=== PATIENT | male | born 1940 | race Hispanic/Latino ===

== ENCOUNTER → 2018-06-20 | Outpatient (CLI) | payer MEDICARE ==
[2018-06-20 10:33] LABS: CREATININE 1.1 mg/dL (0.5-1.5)
== END | disposition home or self-care (01) ==
LOC: LAB 09:50
PROVIDERS: ATTEND Thoracic Surgery (Cardiothoracic Vascular Surgery)
DX: Z01.812 Encounter for preprocedural laboratory examination (principal); I71.4 Abdominal aortic aneurysm, without rupture
CPT/HCPCS: 36415; 82565; 84520

== ENCOUNTER → 2018-06-26 | Outpatient (CLI) | payer MEDICARE ==
[~2018-06-26] MED LIST: IOHEXOL 350 MG/ML 100ML INFUS..BTL IV ONE
== END | disposition home or self-care (01) ==
LOC: RAH 07:16
PROVIDERS: ATTEND Thoracic Surgery (Cardiothoracic Vascular Surgery)
DX: I71.4 Abdominal aortic aneurysm, without rupture (principal); K57.90 Diverticulosis of intestine, part unspecified, without perforation or abscess without bleeding; K80.20 Calculus of gallbladder without cholecystitis without obstruction; N28.1 Cyst of kidney, acquired
CPT/HCPCS: 71275; 74174; Q9967

== ENCOUNTER 2018-07-09 07:55 | Inpatient (IN) | payer MEDICARE ==
[2018-07-08 13:56] VITALS: BP 175/67
[2018-07-08 14:07] LABS: BASOPHILS % (AUTO) 0.7 % (0.0-5.0); HEMATOCRIT 30.8 % (42-54); LYMPHOCYTES % (AUTO) 27.3 % (21.0-51.0); MEAN CORPUSCULAR HEMOGLOBIN 28.1 pg (27.0-33.0); MEAN CORPUSCULAR HGB CONC 33.9 g/dL (32.0-36.0); MEAN CORPUSCULAR VOLUME 82.8 fL (79-99); MONOCYTES % (AUTO) 13.3 % (3.0-13.0); NEUTROPHILS % (AUTO) 55.7 % (40.0-77.0); NUCLEATED RED BLOOD CELLS 0.1 % (0.0-0.19); PLATELET COUNT (AUTO) 129 K/uL (130-400); RED BLOOD CELL COUNT(AUTO) 3.72 MIL/uL (4.50-6.20); RED CELL DISTRIBUTION WIDTH 14.7 % (11.0-15.5); WHITE BLOOD COUNT (AUTO) 4.1 K/uL (4.8-10.8)
[2018-07-08 14:14] LABS: HEMOGLOBIN A1C 5.8 % (4.0-6.0)
[2018-07-08 14:18] LABS: INR 1.02 (0.85-1.15); PROTHROMBIN TIME 10.7 SEC (9.6-11.6)
[2018-07-08 14:19] LABS: BILIRUBIN,TOTAL 0.7 mg/dL (0.2-1.0); CREATININE 1.1 mg/dL (0.5-1.5); POTASSIUM 5.5 mmol/L (3.5-5.1); TOTAL PROTEIN, SERUM 7.2 g/dL (6.0-8.3)
--- NOTE | 2018-07-08 16:52 | NUR ---
ABNORMAL LABS ABNORMAL LABS REPORTED TO FREDERIC FALCON DR. NURSE. NA 128,POTASSIUM 5.5, H/H 10.5/30.8, PLT 129.NO FURTHER ORDERS GIVEN, MAY PROCEED WITH PLANNED PROCEDURE.
[~2018-07-09] VITALS: Ht 182.9 cm; Wt 68.5 kg
[2018-07-09] VITALS (25 sets, daily range): BP systolic 45–171; BP diastolic 29–102
[~2018-07-09 07:55] MED LIST changes: +ASPI-1026 PO; +CITA-107 PO; +FAMO40TA7 PO; -IOHEXOL 350 MG/ML 100ML INFUS..BTL IV ONE; +LISI-617 PO; +METF-446 PO; +METO25TA6 PO; +MULT-1258 PO; +PIOG30TA70 PO; +SIMV20TA6 PO; +TAMS-1 PO
[2018-07-09] MEDS ORDERED: SODIUM CHLORIDE 0.9% 1000ML 1,000 ML IV ONE (08:59)
[2018-07-09] MEDS: CEFUROXIME SODIUM 1.5 GM VIAL IVP ONE ×2 (09:17→13:30)
[2018-07-09] MEDS ORDERED: BACITRACIN 50,000 UNIT VIAL ONE ×2 (11:43→11:44)
[2018-07-09] MEDS ORDERED: PROPOFOL 10 MG/ML 20ML VIAL IV ONE (12:34)
[2018-07-09] MEDS ORDERED: GLYCOPYRROLATE 1 MG/5 ML SYRINGE ONE (12:34)
[2018-07-09] MEDS ORDERED: NOREPINEPHRINE BITARTRATE 1 MG/1 ML ML IV ONE (12:34)
[2018-07-09] MEDS ORDERED: MIDAZOLAM HCL 1 MG/ML 2ML VIAL ONE ×2 (12:35→12:38)
[2018-07-09] MEDS ORDERED: NEOSTIGMINE 5MG/5ML SYR IV ONE (12:35)
[2018-07-09] MEDS ORDERED: ROCURONIUM 10MG/1ML SYR 10 MG/ML ML ONE ×2 (12:35→13:38)
[2018-07-09] MEDS ORDERED: FENTANYL CITRATE PF 50 MCG/1 ML 5ML AMP IV ONE ×3 (12:35→16:39)
[2018-07-09] MEDS ORDERED: NITROGLYCERIN 50 MG/D5% WATER 1 BOT ONE ×2 (12:39→13:14)
[2018-07-09] MEDS ORDERED: HEPARIN SODIUM 1000UNIT/ML 10ML VIAL ONE (13:23)
[2018-07-09] MEDS ORDERED: MANNITOL 20% 500ML BAG 500 ML IV ONE (13:44)
[2018-07-09] MEDS ORDERED: ONDANSETRON HCL 4 MG/2 ML VIAL ONE (13:55)
[2018-07-09] MEDS ORDERED: MORPHINE SULFATE 2 MG/ML 1ML SYG IVP PRN ×2 (14:30)
[2018-07-09] MEDS ORDERED: ALBUMIN (HUMAN) 25% 50 ML IV ONE (14:32)
[2018-07-09] MEDS ORDERED: GLUCAGON 1MG KIT 1 MG ML IM PRN (14:45)
[2018-07-09] MEDS ORDERED: DEXTROSE 50%-WATER 50 ML DISP.SYRIN IV PRN (14:45)
[2018-07-09] MEDS ORDERED: LIDOCAINE HCL-MPF 1% 2ML VIAL IVP PRN ×2 (14:45)
[2018-07-09] MEDS ORDERED: POTASSIUM CHLORIDE 10MEQ/100ML 100 ML IV PRN ×2 (14:45)
[2018-07-09] MEDS ORDERED: POTASSIUM CHLORIDE 10% ELIXIR 20 MEQ/15 ML UDCUP PO PRN (14:45)
[2018-07-09] MEDS ORDERED: EPINEPHRINE 1 MG/ML 30ML VIAL IJ ONE (15:15)
[2018-07-09 15:16] LABS: ABG BASE EXCESS -3.6 mmol/L (-2.0-3.0); ABG HCO3 21.9 mmol/L (21.0-28.0); ABG OXYGEN SATURATION 76.4 % (95.0-99.0); ABG PCO2 41 mmHg (35-48)
[2018-07-09 15:40] LABS: ABG BASE EXCESS 9.9 mmol/L (-2.0-3.0); ABG HCO3 35.7 mmol/L (21.0-28.0); ABG PCO2 56 mmHg (35-48)
[2018-07-09 16:13] LABS: ABG BASE EXCESS 1.8 mmol/L (-2.0-3.0); ABG HCO3 26.8 mmol/L (21.0-28.0); ABG OXYGEN SATURATION 80.2 % (95.0-99.0); ABG PCO2 44 mmHg (35-48)
[2018-07-09] MEDS ORDERED: EPHEDRINE SULFATE 50 MG/ML AMPULE ONE (16:43)
[2018-07-09 17:16] LABS: ABG BASE EXCESS -2.8 mmol/L (-2.0-3.0); ABG HCO3 21.5 mmol/L (21.0-28.0); ABG OXYGEN SATURATION 98.8 % (95.0-99.0); ABG PCO2 35 mmHg (35-48)
[2018-07-09 17:28] LABS: HEMATOCRIT 24.8 % (42-54); MEAN CORPUSCULAR HEMOGLOBIN 27.3 pg (27.0-33.0); MEAN CORPUSCULAR HGB CONC 32.8 g/dL (32.0-36.0); MEAN CORPUSCULAR VOLUME 83.3 fL (79-99); PLATELET COUNT (AUTO) 92 K/uL (130-400); RED BLOOD CELL COUNT(AUTO) 2.98 MIL/uL (4.50-6.20); RED CELL DISTRIBUTION WIDTH 14.7 % (11.0-15.5); WHITE BLOOD COUNT (AUTO) 8.1 K/uL (4.8-10.8)
[2018-07-09 17:46] LABS: CREATININE 0.9 mg/dL (0.5-1.5); POTASSIUM 4.3 mmol/L (3.5-5.1)
[2018-07-09 18:27] LABS: INR 1.44 (0.85-1.15); PARTIAL THROMBOPLASTIN TIME 37.1 SEC (26.3-35.5)
[2018-07-09] MEDS: D5W-1/2 NS/20MEQ KCL 1,000 ML IV SCH (18:42)
[2018-07-09] MEDS: INSULIN HUMULIN R 100 UNIT/ML 3ML SQ SCH ×2 (18:45→20:46)
[2018-07-09] MEDS: KETOROLAC TROMETHAMINE 15MG/ML IV SCH (18:48)
--- NOTE | 2018-07-09 19:00 | NUR ---
ASSESSMENT PT RESTING IN BED. PERRLA, FOLLOWS ALL COMMANDS, COOPERATIVE. ETT 7.5. HR: NSR. VENT SETTINGS: SIMV-12-40%-650, PRESSURE SUPPORT 10 PEEP 5. IV FLUIDS INFUSING WITHOUT DIFFICULTY. 16 FR LEFT NARE NGT AT L.I.W.S. SURGICAL INCISION AND DRY INTACT . 16 FR MCCARTY CATHETER TO BSD. CALLBELL WITHIN REACH. ASSESSMENT COMPLETED, SEE FLOW SHEET.
[2018-07-09 19:18] LABS: ABG BASE EXCESS -3.3 mmol/L (-2.0-3.0); ABG HCO3 18.2 mmol/L (21.0-28.0); ABG OXYGEN SATURATION 98.7 % (95.0-99.0); ABG PCO2 23 mmHg (35-48)
[2018-07-09] MEDS ORDERED: SODIUM BICARB 50MEQ 50ML VIAL ONE (19:34)
--- NOTE | 2018-07-09 19:55 | NUR ---
WEANING PARAMETERS: NIF -25 VC 2L PT EXTUBATED AT 195 PLACED ON 40% AEROSOL MASK
[2018-07-09] MEDS ORDERED: SODIUM BICARB 50MEQ 50ML VIAL IV ONE (20:30)
[2018-07-09] MEDS: FAMOTIDINE/PF 20 MG/2 ML VIAL IV SCH (20:40)
[2018-07-09] MEDS ORDERED: NOREPINEPHRINE 4MG/NS 250ML 250 ML IV ONE (20:45)
--- NOTE | 2018-07-09 23:00 | NUR ---
ASSESSMENT PT RESTING IN BED. 40% AEROSOL MASK IN PLACE. HR: NSR, PERRLA. IV FLUIDS INFUSING WITHOUT DIFFICULTY. SURGICAL INCISION TO ABD INTACT. 16 FR MCCARTY CATHETER TO BSD. CALLBELL WITHIN REACH. ASSESSMENT COMPLETED, SEE FLOW SHEET.
[2018-07-10] VITALS (28 sets, daily range): BP systolic 78–267; BP diastolic 46–262
[2018-07-10] MEDS: CEFAZOLIN SODIUM 1 GM VIAL IVP SCH ×2 (00:38→14:26)
[2018-07-10] MEDS: KETOROLAC TROMETHAMINE 15MG/ML IV SCH ×2 (00:41→06:00)
[2018-07-10 05:40] LABS: HEMATOCRIT 28.3 % (42-54); MEAN CORPUSCULAR HEMOGLOBIN 28.7 pg (27.0-33.0); MEAN CORPUSCULAR HGB CONC 34.7 g/dL (32.0-36.0); MEAN CORPUSCULAR VOLUME 82.8 fL (79-99); PLATELET COUNT (AUTO) 96 K/uL (130-400); RED BLOOD CELL COUNT(AUTO) 3.42 MIL/uL (4.50-6.20); RED CELL DISTRIBUTION WIDTH 14.9 % (11.0-15.5); WHITE BLOOD COUNT (AUTO) 9.4 K/uL (4.8-10.8)
[2018-07-10 05:42] LABS: POTASSIUM 4.8 mmol/L (3.5-5.1)
[2018-07-10] MEDS: INSULIN HUMULIN R 100 UNIT/ML 3ML SQ SCH ×3 (06:48→17:01)
[2018-07-10 07:14] LABS: ABG BASE EXCESS -1.4 mmol/L (-2.0-3.0); ABG HCO3 22.5 mmol/L (21.0-28.0); ABG OXYGEN SATURATION 99.2 % (95.0-99.0); ABG PCO2 35 mmHg (35-48)
[2018-07-10] MEDS: FAMOTIDINE/PF 20 MG/2 ML VIAL IV SCH ×2 (08:35→21:02)
[2018-07-10] MEDS: D5W-1/2 NS/20MEQ KCL 1,000 ML IV SCH ×2 (11:11→21:01)
--- NOTE | 2018-07-10 13:28 | NUR ---
DC PLAN VISITED WITH PATIENT. PATIENT LIVES WITH SPOUSE. INDEPENDENT ABLE TO PERFORM ADL'S. PATIENT HAS NO SERVICES OR DME'S. FEELS SAFE TO RETURN HOME. Addendum: 07/10/18 at 1330 by FRANTZ HAMMOND RN CM Amended: Links added.
[2018-07-10 14:50] LABS: CREATININE 2.4 mg/dL (0.5-1.5)
[2018-07-10] MEDS ORDERED: PHARMACY COMMUNICATION MISC SCH (15:45)
[2018-07-10] MEDS ORDERED: FUROSEMIDE 10 MG/ML 4ML VIAL IV SCH (16:00)
[2018-07-10] MEDS: FUROSEMIDE 100 MG in SODIUM CHLORIDE 0.9% 90 ML IV PRN ×2 (16:14→21:23)
[2018-07-10] MEDS: HYDRALAZINE HCL 20 MG/ML VIAL IV PRN (17:44)
--- NOTE | 2018-07-10 20:30 | NUR ---
ASSESSMENT PT RESTING IN BED. O2 2L NC IN PLACE. HR: NSR, PERRLA. IV FLUIDS INFUSING WITHOUT DIFFICULTY. SURGICAL INCISION TO ABD C/D/I. 16 FR MCCARTY CATHETER TO BSD. CALLBELL WITHIN REACH. ASSESSMENT COMPLETED, SEE FLOW SHEET.
--- NOTE | 2018-07-10 21:40 | NUR ---
BLOOD SUGARS Q6H PT NPO, BLOOD SUGARS Q6H, UNTIL DIET STARTED
[2018-07-10] MEDS ORDERED: MEPERIDINE HCL/PF 25 MG/0.5 ML AMPUL IM PRN (22:15)
[2018-07-10] MEDS ORDERED: MEPERIDINE-PF 25 MG/ML SYG ONE (23:00)
[2018-07-10] MEDS ORDERED: FUROSEMIDE 100 MG in SODIUM CHLORIDE 0.9% 90 ML IV PRN (23:52)
[2018-07-11] VITALS (29 sets, daily range): BP systolic 94–199; BP diastolic 38–92
[2018-07-11] MEDS: CEFAZOLIN SODIUM 1 GM VIAL IVP SCH (00:30)
[2018-07-11] MEDS: INSULIN HUMULIN R 100 UNIT/ML 3ML SQ SCH ×5 (05:53→21:00)
[2018-07-11 05:54] LABS: MEAN CORPUSCULAR HEMOGLOBIN 27.9 pg (27.0-33.0); MEAN CORPUSCULAR HGB CONC 33.9 g/dL (32.0-36.0); MEAN CORPUSCULAR VOLUME 82.4 fL (79-99); PLATELET COUNT (AUTO) 96 K/uL (130-400); RED BLOOD CELL COUNT(AUTO) 2.67 MIL/uL (4.50-6.20); RED CELL DISTRIBUTION WIDTH 14.9 % (11.0-15.5); WHITE BLOOD COUNT (AUTO) 9.2 K/uL (4.8-10.8)
--- NOTE | 2018-07-11 06:06 | NUR ---
DR ALEJANDRO ALLEN CALLED, UP DATE GIVEN. MADE AWARE OF URINE OUT PUT AND HGB OF 7.5. SEE ORDERS
[2018-07-11 06:15] LABS: CREATININE 2.3 mg/dL (0.5-1.5); POTASSIUM 4.4 mmol/L (3.5-5.1)
[2018-07-11] MEDS ORDERED: ALBUMIN (HUMAN) 5% 250 ML IV SCH (06:15)
[2018-07-11] MEDS ORDERED: ALBUMIN (HUMAN) 5% 250 ML IV ONE (06:16)
--- NOTE | 2018-07-11 06:42 | NUR ---
DR ALEJANDRO ALLEN MADE AWARE OF BUN/CREAT AND AGAIN URINE OUTPUT. NO NEW ORDERS RECEIVED AT THIS TIME.
[2018-07-11] MEDS ORDERED: SODIUM CHLORIDE 0.9% 250 ML IV ONE (07:33)
[2018-07-11] MEDS: D5W-1/2 NS/20MEQ KCL 1,000 ML IV SCH (08:12)
[2018-07-11] MEDS: FAMOTIDINE/PF 20 MG/2 ML VIAL IV SCH (09:06)
[2018-07-11] MEDS: ENOXAPARIN SODIUM 30 MG/0.3 ML SQ SCH (09:07)
[2018-07-11] MEDS: HYDRALAZINE HCL 20 MG/ML VIAL IV PRN (09:07)
--- NOTE | 2018-07-11 09:58 | NUR ---
DR. MALAGON VISITED AND ASSESSED PATIENT. INFORMED ON PATIENT LABS AND STATUS. ORDERS GIVEN SEE CHART.
[2018-07-11] MEDS ORDERED: CALCIUM GLUCONATE 1 GM in SODIUM CHLORIDE 0.9% 50 ML IV PRN (10:15)
[2018-07-11] MEDS: METOPROLOL TARTRATE 25 MG TAB PO SCH ×2 (14:23→21:27)
--- NOTE | 2018-07-11 20:30 | NUR ---
ASSESSMENT PT RESTING IN BED. O2 2L NC IN PLACE. HR: NSR, PERRLA. LASIX GTT INFUSING WITHOUT DIFFICULTY. SURGICAL INCISION TO ABD C/D/I. 16 FR MCCARTY CATHETER TO BSD. SHRUTHI REVIEWED AND WITHIN REACH. ASSESSMENT COMPLETED, SEE FLOW SHEET.
[2018-07-11] MEDS ORDERED: MEPERIDINE-PF 25 MG/ML SYG IM PRN (21:10)
[2018-07-11] MEDS: TAMSULOSIN HCL 0.4 MG CAP.ER.24H PO SCH (21:27)
[2018-07-12] VITALS (24 sets, daily range): BP systolic 98–153; BP diastolic 52–92
--- NOTE | 2018-07-12 | NUR ---
ASSESSMENT PT RESTING IN BED. O2 2L NC IN PLACE. HR: NSR, PERRLA. LASIX GTT INFUSING WITHOUT DIFFICULTY. SURGICAL INCISION TO ABD C/D/I. 16 FR MCCARTY CATHETER TO BSD. CALLBELL WITHIN REACH. ASSESSMENT COMPLETED, SEE FLOW SHEET.
[2018-07-12 05:01] LABS: HEMATOCRIT 26.7 % (42-54); MEAN CORPUSCULAR HEMOGLOBIN 28.9 pg (27.0-33.0); MEAN CORPUSCULAR HGB CONC 34.5 g/dL (32.0-36.0); MEAN CORPUSCULAR VOLUME 83.8 fL (79-99); PLATELET COUNT (AUTO) 78 K/uL (130-400); RED BLOOD CELL COUNT(AUTO) 3.19 MIL/uL (4.50-6.20); RED CELL DISTRIBUTION WIDTH 15.2 % (11.0-15.5); WHITE BLOOD COUNT (AUTO) 7.6 K/uL (4.8-10.8)
[2018-07-12 05:16] LABS: CREATININE 2.1 mg/dL (0.5-1.5); POTASSIUM 3.7 mmol/L (3.5-5.1)
[2018-07-12] MEDS: INSULIN HUMULIN R 100 UNIT/ML 3ML SQ SCH ×4 (05:36→20:57)
--- NOTE | 2018-07-12 07:38 | NUR ---
REPORT REPORT GIVEN TO KIMMIE DE LA GARZA
[2018-07-12] MEDS ORDERED: TRAMADOL HCL 50 MG TABLET ONE (08:17)
[2018-07-12] MEDS: PANTOPRAZOLE SODIUM 40 MG TABLET.DR PO SCH (08:21)
[2018-07-12] MEDS: METOPROLOL TARTRATE 25 MG TAB PO SCH ×3 (08:22→21:09)
[2018-07-12] MEDS: ENOXAPARIN SODIUM 30 MG/0.3 ML SQ SCH (08:22)
[2018-07-12] MEDS ORDERED: ASPIRIN 81MG TAB.CHEW PO SCH (09:00)
[2018-07-12] MEDS ORDERED: TRAMADOL HCL 50 MG TABLET PO PRN (09:00)
[2018-07-12] MEDS: FUROSEMIDE 10 MG/ML 2ML VIAL IV SCH ×2 (17:48→23:03)
--- NOTE | 2018-07-12 20:00 | NUR ---
ASSESSMENT AWAKE. RESTING IN BED. DENIES PAIN. REMINDED TO USE IS Q1H FOR 10 BREATHS WHILE AWAKE TO PREVENT LUNG COMPLICATIONS. ASSESSMENT COMPLETED SEE FLOW SHEET. ENCOURAGED TO CALL FOR WANTS OR NEEDS. Addendum: 07/12/18 at 2024 by DOMINIQUE PETERSON RN RN Amended: Links added.
[2018-07-12] MEDS: TAMSULOSIN HCL 0.4 MG CAP.ER.24H PO SCH (21:09)
[2018-07-12] MEDS: POTASSIUM CHLORIDE 20 MEQ ERTAB PO SCH (21:10)
[2018-07-12] MEDS: POTASSIUM CHLORIDE 20 MEQ ERTAB PO PRN (23:04)
[2018-07-13] VITALS (17 sets, daily range): BP systolic 88–158; BP diastolic 38–83
[2018-07-13 03:58] LABS: HEMATOCRIT 28.4 % (42-54); MEAN CORPUSCULAR HEMOGLOBIN 28.3 pg (27.0-33.0); MEAN CORPUSCULAR HGB CONC 33.7 g/dL (32.0-36.0); MEAN CORPUSCULAR VOLUME 83.9 fL (79-99); PLATELET COUNT (AUTO) 107 K/uL (130-400); RED BLOOD CELL COUNT(AUTO) 3.39 MIL/uL (4.50-6.20); RED CELL DISTRIBUTION WIDTH 15.2 % (11.0-15.5); WHITE BLOOD COUNT (AUTO) 6.7 K/uL (4.8-10.8)
[2018-07-13 04:00] LABS: CREATININE 1.7 mg/dL (0.5-1.5); POTASSIUM 3.8 mmol/L (3.5-5.1)
[2018-07-13] MEDS: FUROSEMIDE 10 MG/ML 2ML VIAL IV SCH ×3 (04:48→21:44)
[2018-07-13] MEDS: INSULIN HUMULIN R 100 UNIT/ML 3ML SQ SCH ×4 (06:26→20:22)
--- NOTE | 2018-07-13 07:20 | NUR ---
AM ASSESSMENT COMPLETED NOTED. PT AAO X3. NO NEURO DEFICIT NOTED. ON ROOM AIR, NO RESP DISTRESS NOTED. DRESSING TO ABDOMEN DRY AND INTACT. BOWEL SOUNDS PRESENT, PT SATES IS PASSING GAS, ABDOMEN SOFT, DENIES ANY NAUSEA. RIGHT IJ CVC INTACT. FC TO GRAVITY. SCDS IN PLACE. VS NOTED ON COMPUTER. DENIES ANY PAIN AT THIS TIME. CALL LIGHT WITHIN REACH. CONTINUE TO MONITOR PT.
[2018-07-13] MEDS: METOPROLOL TARTRATE 25 MG TAB PO SCH ×4 (08:33→20:19)
[2018-07-13] MEDS: PANTOPRAZOLE SODIUM 40 MG TABLET.DR PO SCH (08:33)
[2018-07-13] MEDS: POTASSIUM CHLORIDE 20 MEQ ERTAB PO SCH ×2 (08:34→20:18)
--- NOTE | 2018-07-13 11:51 | NUR ---
PT AMBULATED IN HALLWAY. TOLERATED WELL.
[2018-07-13] MEDS: ENOXAPARIN SODIUM 30 MG/0.3 ML SQ SCH (15:07)
[2018-07-13] MEDS: ASPIRIN 81MG TAB.CHEW PO SCH (15:07)
--- NOTE | 2018-07-13 16:41 | NUR ---
DCP UPDATE: Met with pt/spouse and sister this afternoon to discuss Md recommendations for [place]hab vs [place]. Per pt he is not willing to consider SNF/Rehab and wants to go home. Discussed HH as an option. Pt is agreeable to HH services. He mentions that he has received rehab services from [id number]. [facility] called from pt's room to verify if they would be able to provide services needed. No answer. Pt consented to [facility]. Referral faxed to [facility] pending acceptance.
[2018-07-13] MEDS: TAMSULOSIN HCL 0.4 MG CAP.ER.24H PO SCH (20:18)
[2018-07-14 03:58] VITALS: BP 145/73
[2018-07-14] MEDS: FUROSEMIDE 10 MG/ML 2ML VIAL IV SCH (05:21)
[2018-07-14] MEDS: POTASSIUM CHLORIDE 20 MEQ ERTAB PO PRN (05:21)
[2018-07-14] MEDS: INSULIN HUMULIN R 100 UNIT/ML 3ML SQ SCH ×4 (05:23→20:42)
[2018-07-14 07:21] VITALS: BP 137/71
[2018-07-14] MEDS: ASPIRIN 81MG TAB.CHEW PO SCH (09:45)
[2018-07-14] MEDS: METOPROLOL TARTRATE 25 MG TAB PO SCH ×3 (09:45→20:31)
[2018-07-14] MEDS: PANTOPRAZOLE SODIUM 40 MG TABLET.DR PO SCH (09:45)
[2018-07-14] MEDS: ENOXAPARIN SODIUM 30 MG/0.3 ML SQ SCH (09:46)
[2018-07-14] MEDS: POTASSIUM CHLORIDE 20 MEQ ERTAB PO SCH ×2 (09:46→20:40)
[2018-07-14 11:05] VITALS: BP 112/59
[2018-07-14 16:24] VITALS: BP 106/57
--- NOTE | 2018-07-14 16:30 | NUR ---
AMBULATING IN HALLWAY WITHOUT ASSISTANCE. STEADY GAIT NOTED.
[2018-07-14 19:24] VITALS: BP 118/73
[2018-07-14] MEDS: FUROSEMIDE 20 MG TABLET PO SCH (20:40)
[2018-07-14] MEDS: TAMSULOSIN HCL 0.4 MG CAP.ER.24H PO SCH (20:41)
[2018-07-15] VITALS: BP 136/69
[2018-07-15 04:00] VITALS: BP 123/67
[2018-07-15 04:19] LABS: HEMATOCRIT 28.1 % (42-54); MEAN CORPUSCULAR HEMOGLOBIN 28.1 pg (27.0-33.0); MEAN CORPUSCULAR HGB CONC 33.4 g/dL (32.0-36.0); MEAN CORPUSCULAR VOLUME 84.2 fL (79-99); PLATELET COUNT (AUTO) 158 K/uL (130-400); RED BLOOD CELL COUNT(AUTO) 3.33 MIL/uL (4.50-6.20); RED CELL DISTRIBUTION WIDTH 15.5 % (11.0-15.5); WHITE BLOOD COUNT (AUTO) 6.7 K/uL (4.8-10.8)
[2018-07-15 04:30] LABS: CREATININE 1.5 mg/dL (0.5-1.5); POTASSIUM 3.9 mmol/L (3.5-5.1)
[2018-07-15] MEDS: INSULIN HUMULIN R 100 UNIT/ML 3ML SQ SCH ×3 (05:32→16:14)
[2018-07-15] MEDS: METOPROLOL TARTRATE 25 MG TAB PO SCH ×2 (07:19→13:24)
[2018-07-15] MEDS: ASPIRIN 81MG TAB.CHEW PO SCH (07:19)
[2018-07-15] MEDS: PANTOPRAZOLE SODIUM 40 MG TABLET.DR PO SCH (07:19)
[2018-07-15] MEDS: FUROSEMIDE 20 MG TABLET PO SCH (07:19)
[2018-07-15] MEDS: POTASSIUM CHLORIDE 20 MEQ ERTAB PO SCH (07:19)
[2018-07-15] MEDS: ENOXAPARIN SODIUM 30 MG/0.3 ML SQ SCH (07:20)
[2018-07-15 07:39] VITALS: BP 153/74
--- NOTE | 2018-07-15 07:50 | NUR ---
ASSESSMENT PT IS AAOX3 DENIES CP DENIES SOB DENIES NV NO COMPLAINTS RESTING IN BED. BREATHING PATTERN IS EVEN AND UNLABORED. MID ABD DRESSING IS CLEAN DRY AND INTACT. CALL LIGHT WITHIN REACH. PATIENT REQUESTS PRUNE JUICE FOR BM, REFUSES LAXATIVES. PRUNE JUICE GIVEN.
[2018-07-15] MEDS ORDERED: LACTULOSE 20 GM/30 ML UDCUP PO SCH (11:15)
[2018-07-15 11:39] VITALS: BP 114/64
--- NOTE | 2018-07-15 12:35 | NUR ---
BM ACHIEVED AFTER ADMINISTRATION OF LACTULOSE PO
--- NOTE | 2018-07-15 13:42 | NUR ---
JUAN JOSE VICTOR SPOKE TO JENNA AT [facility]. SAID THAT SHE OFFICE FOR DR. MALAGON DOES NOT OPEN TILL 2PM NEEDS TO WAIT TILL KNOWS THAT HE WILL BE SIGNING FORMS BEFORE CAN ACCEPT PATIENT. Addendum: 07/15/18 at 1343 by FRANTZ HAMMOND RN CM Amended: Links added.
[2018-07-15 15:00] VITALS: BP 145/73
--- NOTE | 2018-07-15 15:00 | NUR ---
Dressing removed to abdomen Incision is open to air clean dry and intact well approximated. Steri-Strips in place. No losing no dehiscence noted.
--- NOTE | 2018-07-15 16:00 | NUR ---
MD ROUNDS DR WILLAMS ROUNDED, ORDERS RECEIVED FOR DC HOME.
[2018-07-15] MEDS ORDERED: FURO20TA6 PO (16:53)
[2018-07-15] MEDS ORDERED: TRAM50TA4 PO (16:54)
--- NOTE | 2018-07-15 17:49 | NUR ---
DC TO HOME ALL QUESTIONS ANSWERED, PIV REMOVED CATH TIP INTACT. TELE PACK REMOVED. AGREES TO TAKE MEDS ORDERED AND FOLLOW UP WITH DR ALLEN ORDERED. ALL BELONGINGS TAKEN, DOWN VIA WC TO VEHICLE.
--- NOTE | 2018-07-16 09:13 | NUR ---
DC PLAN TRIED BACK AND FORTH WITH HOME HEALTH. THEY WOULD NOT TAKE PATIENT UNTIL OFFICE CONFIRMED THAT MD WOULD SIGN ORDERS. ROUNDED PER NURSE SAID HE IS DISCHARGING HOME. DOES NOT NEED HOME HEALTH. EXPLAINED THAT IT WAS NOT SET UP YET. SAID THAT IS FINE. PATIENT GOING HOME PER MD. LET [facility] JENNA KNOW THAT MD SENDING PATIENT HOME. VERBALIZED UNDERSTANDING. Addendum: 07/16/18 at 0915 by FRANTZ HAMMOND RN CM Amended: Links added.
== END 2018-07-15 18:09 | disposition home or self-care (01) | DRG 271 ==
LOC: DAHIP 07:55 → 2BH 16:26 → 2DH 07-13 19:08
PROVIDERS: ADMIT Thoracic Surgery (Cardiothoracic Vascular Surgery); ATTEND Thoracic Surgery (Cardiothoracic Vascular Surgery)
PROC: 30233K1 Transfusion of Nonautologous Frozen Plasma into Peripheral Vein, Percutaneous Approach (ICD-10-PCS; 2018-07-09)
PROC: 30233N1 Transfusion of Nonautologous Red Blood Cells into Peripheral Vein, Percutaneous Approach (ICD-10-PCS; 2018-07-09)
PROC: 30233R1 Transfusion of Nonautologous Platelets into Peripheral Vein, Percutaneous Approach (ICD-10-PCS; 2018-07-09)
PROC: 0D9670Z Drainage of Stomach with Drainage Device, Via Natural or Artificial Opening (ICD-10-PCS; 2018-07-09)
PROC: 04V00D6 (ICD-10-PCS; principal; 2018-07-09 12:40)
DX: I71.4 Abdominal aortic aneurysm, without rupture (principal); K56.7 Ileus, unspecified; D68.9 Coagulation defect, unspecified; D62 Acute posthemorrhagic anemia; D69.6 Thrombocytopenia, unspecified; E78.5 Hyperlipidemia, unspecified; N18.9 Chronic kidney disease, unspecified; I10 Essential (primary) hypertension; E11.9 Type 2 diabetes mellitus without complications
CPT/HCPCS: 36415; 36430; 71045; 71046; 74018; 80048; 80053; 82435; 82565; 82803; 82947; 82948; 83036; 83605; 84132; 84295; 84520; 85018; 85025; 85027; 85347; 85610; 85730; 86850; 86900; 86901; 86922; 86927; 93005; 94002; 94150; 97039; A4218; A4357; C1768; G0378; J0171; J0360; J0610; J0690; J0697; J1644; J1650; J1815; J1885; J1940; J2175; J2250; J2405; J2704; J2710; J3010; J3480; J3490; J7030; J7040; P9016; P9017; P9034; P9045; P9047

== ENCOUNTER 2020-04-17 17:51 | Inpatient (IN) | payer MEDICARE, OTHER ==
[~2020-04-17] VITALS: Ht 180.3 cm; Wt 71.0 kg
[~2020-04-17 17:51] MED LIST changes: +FURO20TA6 PO; -LISI-617 PO; +LISI5TAB21 PO; +SIMV-43 PO; -SIMV20TA6 PO; +TRAM50TA4 PO
[2020-04-17 18:26] LABS: BASOPHILS % (AUTO) 0.3 % (0.0-5.0); EOSINOPHILS % (AUTO) 2.1 % (0.0-8.0); HEMATOCRIT 31.6 % (42-54); LYMPHOCYTES % (AUTO) 10.6 % (21.0-51.0); MEAN CORPUSCULAR HEMOGLOBIN 26.8 pg (27.0-33.0); MEAN CORPUSCULAR HGB CONC 33.5 g/dL (32.0-36.0); NEUTROPHILS % (AUTO) 79.7 % (40.0-77.0); PLATELET COUNT (AUTO) 173 K/uL (130-400); RED BLOOD CELL COUNT(AUTO) 3.95 MIL/uL (4.50-6.20); RED CELL DISTRIBUTION WIDTH 16.2 % (11.0-15.5); WHITE BLOOD COUNT (AUTO) 7.2 K/uL (4.8-10.8)
[2020-04-17] MEDS ORDERED: ACETAMINOPHEN 325 MG TAB ONE (18:28)
[2020-04-17 18:34] LABS: APPEARANCE,URINE Cloudy (CLEAR); BILIRUBIN,URINE Small (NEGATIVE); COLOR,URINE Dark Yellow (YELLOW); GLUCOSE, URINE (UA) Negative (NEGATIVE); KETONES,URINE Trace mg/dL (NEGATIVE); LEUKOCYTE ESTERASE ,URINE Negative (NEGATIVE); NITRATE,URINE Negative (NEGATIVE); OCCULT BLOOD,URINE Small (NEGATIVE); PH,URINE 5.5 (5.0-8.0); PROTEIN,URINE 300 mg/dL (NEGATIVE)
[2020-04-17 18:38] LABS: CREATININE 2.1 mg/dL (0.5-1.5)
[2020-04-17 18:44] LABS: ALBUMIN 3.7 g/dL (3.5-5.0); BILIRUBIN,TOTAL 0.7 mg/dL (0.2-1.0); TOTAL PROTEIN, SERUM 8.5 g/dL (6.0-8.3)
[2020-04-17 18:45] LABS: BACTERIA,URINE Few /HPF (None Seen); MUCUS,URINE Few LPF (None Seen); SQUAMOUS EPITHELIAL CELL,UR 0-2 /HPF (0-2)
[2020-04-17 18:46] LABS: FINE GRANULAR CASTS,URINE 0-2 /LPF (None Seen)
[2020-04-17] MEDS ORDERED: 0.9%NACL 50ML 50 ML IV ONE (18:57)
[2020-04-17] MEDS ORDERED: CEFTRIAXONE 2GM VIAL ONE (18:57)
[2020-04-17] MEDS ORDERED: DIPHENHYDRAMINE HCL 25 MG CAPSULE PO PRN (21:00)
[2020-04-17] MEDS: CEFTRIAXONE 1G VIAL IV SCH (21:00)
[2020-04-17] MEDS ORDERED: MAG/ALUM/SIMETH 30 ML UDCUP PO PRN (21:00)
[2020-04-17] MEDS ORDERED: GUAIFENESIN-DM 200/20 MG 10 ML PO PRN (21:00)
[2020-04-17] MEDS: FAMOTIDINE 20MG TAB PO SCH (21:00)
[2020-04-17] MEDS ORDERED: NITROGLYCERIN 0.4 MG SL TAB SL PRN (21:00)
[2020-04-17] MEDS: ZOSYN 3.375GM+NS 50ML 50 ML IV SCH (21:00)
[2020-04-17] MEDS ORDERED: DiphenhydrAMINE HCL 50 MG/ML VIAL IV PRN (21:00)
[2020-04-17] MEDS ORDERED: ONDANSETRON 4MG INJ IV PRN (21:00)
[2020-04-17] MEDS ORDERED: LACTULOSE 20 GM/30 ML UDCUP PO PRN (21:00)
[2020-04-17] MEDS: HEPARIN 5,000 UNIT VIAL SQ SCH (21:00)
[2020-04-17] MEDS ORDERED: ACETAMINOPHEN 325 MG TAB PO PRN ×2 (21:00)
[2020-04-17 21:31] LABS: CREATININE 1.9 mg/dL (0.5-1.5); POTASSIUM 3.5 mmol/L (3.5-5.1)
[2020-04-17 21:41] LABS: CRP QUANTITATIVE 262.3 mg/L (0.00-9.0)
[2020-04-17] MEDS ORDERED: PHARMACY COMMUNICATION MISC SCH ×2 (22:15)
[2020-04-18] MEDS: ZOSYN 3.375GM+NS 50ML 50 ML IV SCH ×3 (05:00→21:00)
[2020-04-18 05:29] LABS: BASOPHILS % (AUTO) 0.5 % (0.0-5.0); HEMATOCRIT 29.2 % (42-54); LYMPHOCYTES % (AUTO) 12.8 % (21.0-51.0); MEAN CORPUSCULAR HEMOGLOBIN 26.9 pg (27.0-33.0); MEAN CORPUSCULAR HGB CONC 33.9 g/dL (32.0-36.0); MEAN CORPUSCULAR VOLUME 79.3 fL (79-99); MONOCYTES % (AUTO) 6.7 % (3.0-13.0); NEUTROPHILS % (AUTO) 79.6 % (40.0-77.0); PLATELET COUNT (AUTO) 141 K/uL (130-400); RED BLOOD CELL COUNT(AUTO) 3.68 MIL/uL (4.50-6.20); RED CELL DISTRIBUTION WIDTH 16.3 % (11.0-15.5); WHITE BLOOD COUNT (AUTO) 5.5 K/uL (4.8-10.8)
[2020-04-18 05:43] LABS: BILIRUBIN,TOTAL 0.6 mg/dL (0.2-1.0); CREATININE 1.7 mg/dL (0.5-1.5); TOTAL PROTEIN, SERUM 6.7 g/dL (6.0-8.3)
[2020-04-18 06:13] LABS: CRP QUANTITATIVE 266.1 mg/L (0.00-9.0)
[2020-04-18] MEDS ORDERED: CYAN-35 PO (08:27)
[2020-04-18] MEDS ORDERED: IRON150C5 PO (08:27)
[2020-04-18] MEDS ORDERED: AMLO-257 PO (08:27)
[2020-04-18] MEDS ORDERED: OXYB10TA30 PO (08:27)
[2020-04-18] MEDS ORDERED: PARO-37 PO (08:27)
[2020-04-18 08:58] LABS: ALCOHOL, BLOOD < 3 mg/dL (0-10); CREATINE KINASE, TOTAL 340 U/L (21-232)
[2020-04-18] MEDS ORDERED: Vitamin B Complex/Vit C/Folic Acid PO SCH (09:00)
[2020-04-18] MEDS: FOLIC ACID 5 MG/ML VIAL IV SCH (09:00)
[2020-04-18] MEDS: THIAMINE HCL 100 MG/ML 2ML VIAL IVP SCH (09:00)
[2020-04-18] MEDS: DOXYCYCLINE HYCLATE 100 MG TABLET PO SCH ×2 (09:00→21:00)
[2020-04-18] MEDS: FAMOTIDINE 20MG TAB PO SCH ×2 (09:00→21:00)
[2020-04-18] MEDS: HEPARIN 5,000 UNIT VIAL SQ SCH ×2 (09:00→21:00)
[2020-04-18] MEDS ORDERED: AMLODIPINE 5 MG TAB PO SCH (09:15)
[2020-04-18] MEDS ORDERED: DOXYCYCLINE HYCLATE 100 MG TABLET PO ONE ×2 (09:39→19:38)
[2020-04-18] MEDS ORDERED: AMLODIPINE 5 MG TAB ONE (09:40)
[2020-04-18] MEDS ORDERED: THIAMINE HCL 100 MG/ML 2ML VIAL ONE (09:40)
[2020-04-18 09:53] LABS: AMPHET/METH SCREEN,URINE NEGATIVE (NEGATIVE); BARBITURATE SCREEN, URINE NEGATIVE (NEGATIVE); BENZODIAZEPINES SCREEN,URINE NEGATIVE (NEGATIVE); CANNABINOID SCREEN,URINE NEGATIVE (NEGATIVE); COCAINE SCREEN,URINE NEGATIVE (NEGATIVE); OPIATE SCREEN,URINE NEGATIVE (NEGATIVE); PHENCYCLIDINE SCREEN,URINE NEGATIVE (NEGATIVE)
[2020-04-18] MEDS ORDERED: ZOSYN 3.375GM+NS 50ML 50 ML IV ONE ×2 (09:54→18:22)
[2020-04-18] MEDS ORDERED: FAMOTIDINE 20MG VIAL IV ONE (09:54)
[2020-04-18] MEDS ORDERED: HEPARIN 5,000 UNIT VIAL ONE (09:57)
[2020-04-18] MEDS ORDERED: ACETAMINOPHEN 325 MG TAB ONE (09:58)
[2020-04-18] MEDS: Vitamin B Complex/Vit C/Folic Acid PO SCH (13:00)
[2020-04-18] MEDS ORDERED: CEFTRIAXONE 1G VIAL ONE (19:38)
[2020-04-18] MEDS ORDERED: DiphenhydrAMINE HCL 50 MG/ML VIAL ONE (19:38)
[2020-04-18] MEDS: CEFTRIAXONE 1G VIAL IV SCH (21:00)
[2020-04-18 23:55] VITALS: BP 125/74
[2020-04-19 00:31] LABS: CREATININE 1.7 mg/dL (0.5-1.5); POTASSIUM 3.5 mmol/L (3.5-5.1)
[2020-04-19 03:51] VITALS: BP 127/63
[2020-04-19] MEDS: ZOSYN 3.375GM+NS 50ML 50 ML IV SCH ×3 (05:02→19:43)
[2020-04-19 05:04] LABS: BASOPHILS % (AUTO) 0.2 % (0.0-5.0); HEMATOCRIT 28.7 % (42-54); LYMPHOCYTES % (AUTO) 10.2 % (21.0-51.0); MEAN CORPUSCULAR HEMOGLOBIN 26.8 pg (27.0-33.0); MEAN CORPUSCULAR HGB CONC 34.5 g/dL (32.0-36.0); MEAN CORPUSCULAR VOLUME 77.8 fL (79-99); NEUTROPHILS % (AUTO) 82.9 % (40.0-77.0); PLATELET COUNT (AUTO) 148 K/uL (130-400); RED BLOOD CELL COUNT(AUTO) 3.69 MIL/uL (4.50-6.20); WHITE BLOOD COUNT (AUTO) 4.3 K/uL (4.8-10.8)
[2020-04-19 05:31] LABS: ALBUMIN 2.7 g/dL (3.5-5.0); BILIRUBIN,DIRECT 0.3 mg/dL (0.0-0.3); BILIRUBIN,TOTAL 0.5 mg/dL (0.2-1.0); CREATININE 1.6 mg/dL (0.5-1.5); MAGNESIUM 1.4 mg/dL (1.80-2.40); PHOSPHORUS 3.3 mg/dL (2.5-4.9); POTASSIUM 3.5 mmol/L (3.5-5.1); TOTAL PROTEIN, SERUM 6.9 g/dL (6.0-8.3)
[2020-04-19 06:48] LABS: CRP QUANTITATIVE 355.4 mg/L (0.00-9.0)
[2020-04-19 08:00] VITALS: BP 105/55
[2020-04-19] MEDS: FOLIC ACID 5 MG/ML VIAL IV SCH (09:00)
[2020-04-19] MEDS: FAMOTIDINE 20MG TAB PO SCH ×2 (09:48→19:43)
[2020-04-19] MEDS: THIAMINE HCL 100 MG/ML 2ML VIAL IVP SCH (09:49)
[2020-04-19] MEDS: DOXYCYCLINE HYCLATE 100 MG TABLET PO SCH ×2 (09:49→19:43)
[2020-04-19] MEDS: HEPARIN 5,000 UNIT VIAL SQ SCH ×2 (10:08→19:44)
[2020-04-19 11:56] VITALS: BP 96/45
[2020-04-19] MEDS: Vitamin B Complex/Vit C/Folic Acid PO SCH (13:12)
[2020-04-19 17:23] VITALS: BP 122/46
[2020-04-19] MEDS: CEFTRIAXONE 1G VIAL IV SCH (19:43)
[2020-04-19] MEDS: MAGNESIUM 2GM PREMIX 50ML 50 ML IV PRN ×2 (19:47→23:27)
[2020-04-19 20:15] VITALS: BP 140/65
[2020-04-20 01:05] VITALS: BP 145/60
[2020-04-20] MEDS: ZOSYN 3.375GM+NS 50ML 50 ML IV SCH (04:00)
[2020-04-20 04:11] VITALS: BP 132/65
[2020-04-20 05:43] LABS: BASOPHILS % (AUTO) 0.8 % (0.0-5.0); EOSINOPHILS % (AUTO) 2.7 % (0.0-8.0); HEMATOCRIT 28.8 % (42-54); LYMPHOCYTES % (AUTO) 13.8 % (21.0-51.0); MEAN CORPUSCULAR HEMOGLOBIN 26.6 pg (27.0-33.0); MEAN CORPUSCULAR VOLUME 78.3 fL (79-99); MONOCYTES % (AUTO) 11.1 % (3.0-13.0); NEUTROPHILS % (AUTO) 71.3 % (40.0-77.0); PLATELET COUNT (AUTO) 160 K/uL (130-400); RED BLOOD CELL COUNT(AUTO) 3.68 MIL/uL (4.50-6.20); RED CELL DISTRIBUTION WIDTH 16.5 % (11.0-15.5); WHITE BLOOD COUNT (AUTO) 3.8 K/uL (4.8-10.8)
[2020-04-20 06:31] LABS: ALBUMIN 2.6 g/dL (3.5-5.0); BILIRUBIN,TOTAL 0.4 mg/dL (0.2-1.0); CREATININE 1.5 mg/dL (0.5-1.5); MAGNESIUM 2.5 mg/dL (1.80-2.40); POTASSIUM 3.1 mmol/L (3.5-5.1); TOTAL PROTEIN, SERUM 6.9 g/dL (6.0-8.3)
[2020-04-20 06:45] LABS: CRP QUANTITATIVE 248.1 mg/L (0.00-9.0)
[2020-04-20] MEDS: FAMOTIDINE 20MG TAB PO SCH ×2 (08:05→20:19)
[2020-04-20] MEDS: THIAMINE HCL 100 MG/ML 2ML VIAL IVP SCH (08:05)
[2020-04-20] MEDS: DOXYCYCLINE HYCLATE 100 MG TABLET PO SCH ×2 (08:05→20:19)
[2020-04-20] MEDS: HEPARIN 5,000 UNIT VIAL SQ SCH ×2 (08:10→20:20)
[2020-04-20 08:17] VITALS: BP 146/76
[2020-04-20] MEDS: FOLIC ACID 5 MG/ML VIAL IV SCH (08:27)
[2020-04-20] MEDS ORDERED: COMPOUND IV REFRIGERATED 1 EACH IVSOLN MISC PRN (08:30)
[2020-04-20 11:52] VITALS: BP 103/62
[2020-04-20] MEDS ORDERED: LIDOCAINE HCL-MPF 1% 2ML VIAL IV PRN (12:00)
[2020-04-20] MEDS ORDERED: POTASSIUM CHLORIDE 10% ELIXIR 20 MEQ/15 ML UDCUP PO PRN (12:00)
[2020-04-20] MEDS ORDERED: POTASSIUM CHLORIDE 10MEQ/100ML 100 ML IV PRN (12:00)
[2020-04-20] MEDS: Vitamin B Complex/Vit C/Folic Acid PO SCH (15:08)
[2020-04-20] MEDS: KCL 20 MEQ ERTAB PO PRN ×3 (15:09→20:19)
[2020-04-20 16:00] VITALS: BP 109/59
[2020-04-20 20:35] VITALS: BP 152/77
[2020-04-21 00:05] VITALS: BP 132/68
[2020-04-21 03:48] VITALS: BP 149/70
[2020-04-21 06:23] LABS: HEMATOCRIT 29.4 % (42-54); MEAN CORPUSCULAR HEMOGLOBIN 26.3 pg (27.0-33.0); MEAN CORPUSCULAR HGB CONC 33.3 g/dL (32.0-36.0); MEAN CORPUSCULAR VOLUME 78.8 fL (79-99); RED BLOOD CELL COUNT(AUTO) 3.73 MIL/uL (4.50-6.20); RED CELL DISTRIBUTION WIDTH 16.7 % (11.0-15.5)
[2020-04-21 06:31] LABS: CREATININE 1.4 mg/dL (0.5-1.5); MAGNESIUM 1.9 mg/dL (1.80-2.40); POTASSIUM 3.6 mmol/L (3.5-5.1)
[2020-04-21 08:32] VITALS: BP 126/66
[2020-04-21] MEDS ORDERED: COMPOUND IV REFRIGERATED 1 EACH IVSOLN MISC PRN (09:00)
[2020-04-21] MEDS: THIAMINE HCL 100 MG/ML 2ML VIAL IVP SCH ×2 (10:50→10:52)
[2020-04-21] MEDS: FOLIC ACID 5 MG/ML VIAL IV SCH (10:52)
[2020-04-21] MEDS: DOXYCYCLINE HYCLATE 100 MG TABLET PO SCH ×2 (10:52→21:53)
[2020-04-21] MEDS: FAMOTIDINE 20MG TAB PO SCH ×2 (10:52→21:53)
[2020-04-21] MEDS: HEPARIN 5,000 UNIT VIAL SQ SCH ×2 (10:58→22:00)
[2020-04-21 11:32] VITALS: BP 115/58
[2020-04-21] MEDS: Vitamin B Complex/Vit C/Folic Acid PO SCH (13:00)
[2020-04-21 16:00] VITALS: BP 129/70
[2020-04-21 21:32] VITALS: BP 142/61
[2020-04-21] MEDS: KCL 20 MEQ ERTAB PO PRN (21:54)
[2020-04-21] MEDS: MAGNESIUM 2GM PREMIX 50ML 50 ML IV PRN (22:07)
[2020-04-22] MEDS: KCL 20 MEQ ERTAB PO PRN (00:10)
[2020-04-22 00:57] VITALS: BP 104/63
[2020-04-22 05:22] LABS: BASOPHILS % (AUTO) 0.4 % (0.0-5.0); EOSINOPHILS % (AUTO) 3.4 % (0.0-8.0); LYMPHOCYTES % (AUTO) 18.9 % (21.0-51.0); MEAN CORPUSCULAR HEMOGLOBIN 26.6 pg (27.0-33.0); MEAN CORPUSCULAR HGB CONC 33.1 g/dL (32.0-36.0); MEAN CORPUSCULAR VOLUME 80.3 fL (79-99); MONOCYTES % (AUTO) 16.4 % (3.0-13.0); NEUTROPHILS % (AUTO) 60.5 % (40.0-77.0); PLATELET COUNT (AUTO) 200 K/uL (130-400); RED BLOOD CELL COUNT(AUTO) 3.61 MIL/uL (4.50-6.20); WHITE BLOOD COUNT (AUTO) 6.8 K/uL (4.8-10.8)
[2020-04-22 05:36] VITALS: BP 126/57
[2020-04-22 05:38] LABS: CREATININE 1.2 mg/dL (0.5-1.5); POTASSIUM 3.5 mmol/L (3.5-5.1)
[2020-04-22 08:14] VITALS: BP 145/68
[2020-04-22] MEDS: THIAMINE HCL 100 MG/ML 2ML VIAL IVP SCH (09:41)
[2020-04-22] MEDS: DOXYCYCLINE HYCLATE 100 MG TABLET PO SCH ×2 (09:41→21:53)
[2020-04-22] MEDS: FOLIC ACID 5 MG/ML VIAL IV SCH (09:42)
[2020-04-22] MEDS: FAMOTIDINE 20MG TAB PO SCH ×2 (09:42→21:53)
[2020-04-22] MEDS: HEPARIN 5,000 UNIT VIAL SQ SCH ×2 (09:52→21:54)
[2020-04-22 11:58] VITALS: BP 110/58
[2020-04-22] MEDS: Vitamin B Complex/Vit C/Folic Acid PO SCH (13:00)
[2020-04-22 16:37] VITALS: BP 139/70
[2020-04-22 20:00] VITALS: BP 134/71
[2020-04-23] VITALS: BP 148/72
[2020-04-23 04:00] VITALS: BP 132/66
[2020-04-23 05:27] LABS: BASOPHILS % (AUTO) 0.7 % (0.0-5.0); EOSINOPHILS % (AUTO) 4.6 % (0.0-8.0); HEMATOCRIT 29.2 % (42-54); MEAN CORPUSCULAR HEMOGLOBIN 25.8 pg (27.0-33.0); MEAN CORPUSCULAR HGB CONC 32.2 g/dL (32.0-36.0); MEAN CORPUSCULAR VOLUME 80.2 fL (79-99); MONOCYTES % (AUTO) 16.6 % (3.0-13.0); NEUTROPHILS % (AUTO) 53.6 % (40.0-77.0); PLATELET COUNT (AUTO) 238 K/uL (130-400); RED BLOOD CELL COUNT(AUTO) 3.64 MIL/uL (4.50-6.20); RED CELL DISTRIBUTION WIDTH 17.1 % (11.0-15.5); WHITE BLOOD COUNT (AUTO) 5.9 K/uL (4.8-10.8)
[2020-04-23 05:42] LABS: CREATININE 1.1 mg/dL (0.5-1.5); POTASSIUM 3.6 mmol/L (3.5-5.1)
[2020-04-23 08:53] VITALS: BP 132/68
[2020-04-23] MEDS ORDERED: FOLIC ACID 1 MG TABLET PO SCH (09:06)
[2020-04-23] MEDS: DOXYCYCLINE HYCLATE 100 MG TABLET PO SCH ×2 (10:05→17:21)
[2020-04-23] MEDS: FAMOTIDINE 20MG TAB PO SCH (10:05)
[2020-04-23] MEDS: HEPARIN 5,000 UNIT VIAL SQ SCH (10:06)
[2020-04-23] MEDS ORDERED: THIAMINE HCL 100 MG/ML 2ML VIAL IVP SCH (10:15)
[2020-04-23] MEDS: Vitamin B Complex/Vit C/Folic Acid PO SCH (12:42)
[2020-04-23 13:00] VITALS: BP 145/65
[2020-04-23 17:09] VITALS: BP 125/70
== END 2020-04-23 17:45 | disposition home or self-care (01) | DRG 177 ==
LOC: EDH 17:51 → EDHIP 20:53 → 3DH 04-18 22:23
PROVIDERS: ADMIT Family Medicine; ATTEND Family Medicine
DX: J15.6 Pneumonia due to other Gram-negative bacteria (principal); G93.41 Metabolic encephalopathy; E87.1 Hypo-osmolality and hyponatremia; N39.0 Urinary tract infection, site not specified; N17.9 Acute kidney failure, unspecified; G45.9 Transient cerebral ischemic attack, unspecified; J43.2 Centrilobular emphysema; I12.9 Hypertensive chronic kidney disease with stage 1 through stage 4 chronic kidney disease, or unspecified chronic kidney disease; N18.30 Chronic kidney disease, stage 3 unspecified; E11.22 Type 2 diabetes mellitus with diabetic chronic kidney disease; Z20.822 Contact with and (suspected) exposure to COVID-19; B95.7 Other staphylococcus as the cause of diseases classified elsewhere; B96.89 Other specified bacterial agents as the cause of diseases classified elsewhere; D64.9 Anemia, unspecified; E78.5 Hyperlipidemia, unspecified; E83.42 Hypomagnesemia; E87.6 Hypokalemia; N40.0 Benign prostatic hyperplasia without lower urinary tract symptoms; S00.93XA Contusion of unspecified part of head, initial encounter; W18.00XA Striking against unspecified object with subsequent fall, initial encounter; R53.81 Other malaise; R29.6 Repeated falls; Z80.1 Family history of malignant neoplasm of trachea, bronchus and lung; Z86.79 Personal history of other diseases of the circulatory system; Y93.89 Activity, other specified; Y99.8 Other external cause status; Y92.009 Unspecified place in unspecified non-institutional (private) residence as the place of occurrence of the external cause
CPT/HCPCS: 0099U; 36415; 70450; 71045; 71250; 73070; 73090; 73120; 74176; 80048; 80053; 80076; 80305; 81001; 82306; 82533; 82550; 82728; 83036; 83540; 83550; 83605; 83735; 84100; 84145; 84443; 84484; 85025; 85027; 85378; 86140; 86738; 87040; 87077; 87186; 87426; 87449; 87798; 87804; 87880; 93005; 97039; G0378; J0696; J1200; J1644; J2543; J3411; J3475; J3490; U0003

== ENCOUNTER → 2023-01-26 | Outpatient (CLI) | payer OTHER ==
[~2023-01-26] MED LIST changes: +AMLO-257 PO; -CITA-107 PO; +CYAN-35 PO; -FURO20TA6 PO; +IOHEXOL 350 MG/ML 100ML INFUS..BTL IV ONE; +IRON150C5 PO; -LISI5TAB21 PO; -METO25TA6 PO; +OXYB10TA30 PO; +PARO-37 PO; -TRAM50TA4 PO
== END | disposition home or self-care (01) ==
LOC: RAH 09:50
PROVIDERS: ATTEND Internal Medicine Gastroenterology
DX: K57.30 Diverticulosis of large intestine without perforation or abscess without bleeding (principal); K43.9 Ventral hernia without obstruction or gangrene; I71.9 Aortic aneurysm of unspecified site, without rupture; K80.20 Calculus of gallbladder without cholecystitis without obstruction
CPT/HCPCS: 74178; Q9967